=== PATIENT | female | born 1990 | race Hispanic/Latino ===

== ENCOUNTER 2018-05-27 08:46 | Day surgery (SDC) | payer OTHER, SELFPAY ==
[2018-05-27 09:28] VITALS: BP 120/67; TEMP 98.2; BMI 29.2
[2018-05-27 09:57] LABS: Amnisure Test No Membranes Rupture (No Rupture)
[2018-05-27 09:58] LABS: Amnisure Internal Control QC ACCEPTABLE (ACCEPTABLE)
--- NOTE | 2018-05-27 15:59 | HP ---
OB ER ENCOUNTER PRIMARY OB: Jl Flowers MD CHIEF COMPLAINT: Leakage of fluid. HISTORY OF PRESENT ILLNESS: The patient is a 27-year-old, G2, P1 female with an intrauterine at 24 weeks gestation, who is presenting with vaginal loss of fluid after showering this morning around 8 o'clock and reports that she has had a couple other intermittent episodes with discharge of fluid that is clear and milky. The patient denies any recent intercourse for approximately the last two weeks. She also denies any uterine contractions, vaginal bleeding, or change in vaginal odor. She also denies dysuria. The patient does report a history of constipation over the last couple of days. Reports positive movement. Of note, this is a product of IVF, with Dr. Parikh. The patient denies vision changes, back pain, abdominal pain, cramping, nausea, or vomiting. PAST MEDICAL HISTORY: Gestational diabetes. PAST SURGICAL HISTORY: None. ALLERGIES: NO KNOWN DRUG ALLERGIES. SOCIAL HISTORY: Denies drug, alcohol, or tobacco use. MEDICATIONS: Metformin 500 mg at bedtime. OB LABS: Unavailable at the time of dictation. OB HISTORY: The patient has had one child delivered at term and one previous . REVIEW OF SYSTEMS: Per HPI. PHYSICAL EXAMINATION: VITAL SIGNS: Blood pressure 120/67, heart rate of 79, respiratory rate of 18, and temperature 98.2. GENERAL: She appears to be in no acute distress. She is alert, oriented, cooperative, pleasant to interact with. HEAD: Normocephalic and atraumatic. LUNGS: Clear to auscultation bilaterally. HEART: Regular rate and rhythm. ABDOMEN: Gravid, soft, and nontender.. EXTREMITIES: Nontender and nonedematous. : The perineum is fairly dry. Vestibular region has moisture, but no identifiable discharge. On speculum exam, the patient has no evidence of pulling. She does have a very small amount of milky normal appearing discharge at the base of the vaginal canal. No bleeding. Cervix is visibly closed. heart tones Doppler in the 140s. Bedside ultrasound demonstrates a normal CRUZ of 14. LABORATORY DATA: AmniSure test is negative. BP-3 test is negative for evidence of Trichomonas, yeast infection, or bacterial vaginosis. ASSESSMENT AND PLAN: The patient is a 27-year-old G2, P1 female with an intrauterine at 24 weeks, coming in complaining of vaginal leakage of fluid after showering. There is no evidence of infection or rupture of membranes or labor. Fetus has a reassuring heart tones and has normal fluid on bedside ultrasound. The patient will be discharged to home with instructions for precautions for labor or rupture of membranes. She has an appointment and been asked to keep her next scheduled appointment with Dr. Flowers. Job ID: [id number]
== END 2018-05-27 11:50 | disposition home or self-care (01) ==
LOC: L&D/OP 08:46
PROVIDERS: ATTEND Family Medicine
DX: O99.89 Other specified diseases and conditions complicating pregnancy, childbirth and the puerperium (principal); N89.8 Other specified noninflammatory disorders of vagina; O24.419 Gestational diabetes mellitus in pregnancy, unspecified control; Z3A.24 24 weeks gestation of pregnancy; Z79.84 Long term (current) use of oral hypoglycemic drugs
CPT/HCPCS: 76815; 84112; 87480; 87510; 87660; 99284

== ENCOUNTER 2018-07-01 14:43 | Day surgery (SDC) | payer OTHER ==
--- NOTE | 2018-07-01 16:00 | PDOC.LDHP ---
Labor and Delivery H&P Chief complaint: other (epigastric pain) HPI: Patient of Dr Flowers CC: epigastric pain Time: 1600 HPI: (H&P Dictated): 27 yo at 32 weeks here for colicky pain. Some nausea with it...no fever, no VB, no LOF. Good FM. Has GDM on metformin Review of Systems: negative as per HPI Current gestational age (weeks): 32 Due date: 08/26/18 Dating criteria: last menstrual period Grav: 2 Para: 1 Current complications: gestational diabetes (on metformin) Abnormal US findings: No Current medications: pre-tato vitamins, other (methformin) Previous surgical history: none Allergies/Adverse Reactions: Allergies Allergy/AdvReac Type Severity Reaction Status Date / Time No Known Allergies Allergy Verified 05/27/18 09:37 Social history: none - Physical Exam Vital signs reviewed and normal: yes (115/68) General: NAD Heart: RRR Lungs: CTAB Abdomen: gravid Extremeties: no edema FHT: category 1 (for age) Schaller contractions every: none - Assessment 32 weeks epigasric pain, r/o stones - Plan Plan: observation in L&D (We will order RUQ sono, Hpylori, CMP, cbc...do not suspect labor)
--- NOTE | 2018-07-01 16:09 | HP ---
LOCATION: Triage. TIME OF EVALUATION: 1535 hours. CHIEF COMPLAINT: This is a patient of Dr. Flowers. In brief, this is a patient who presents for mid epigastric colicky pain. HISTORY OF PRESENT ILLNESS: This is a 27-year-old, G2, P1 with a history of a prior vaginal delivery in 2008, who has an EDC of August 26, gives her an EGA of 32 weeks. She denies contractions or vaginal bleeding or leakage of fluid. REVIEW OF SYSTEMS: Otherwise negative, unless specified in the HPI. PAST SURGICAL HISTORY: Negative. PAST MEDICAL HISTORY: Includes gestational diabetes, for which she takes metformin in this . ALLERGIES: NONE. PHYSICAL EXAMINATION: VITAL SIGNS: Blood pressure is 115/68. heart tones are in the 150s. Her maternal pulse is 90 and she is afebrile. GENERAL: Clinically, she is in no acute distress. ABDOMEN: Soft and nontender. There is no Guthrie's sign. Abdomen and uterine fundus are without point tenderness. : There is no vaginal bleeding. Cervix is deferred as there is no evidence of contractions on TOCO and she is not here for contractions. Nonstress test reveals a reactive tracing for age. There are no contractions on the tocodynamometer. ASSESSMENT: This is a 27-year-old, G2, P1, at 32 weeks with epigastric colicky pain and some nausea. PLAN: 1. I have ordered a right upper quadrant ultrasound. 2. I have ordered a complete metabolic profile and a CBC. 3. I have ordered an H. pylori (send out lab...I instructed her to follow up results with Dr Flowers) 4. The CMP will check her glucose due to her gestational diabetes history. 5. Information given to the patient and we will see what evaluation occurs. Job ID: [id number] [facility]
[2018-07-01 16:23] LABS: #Lymphocytes 0.9 thou/uL (1.20-3.40); #Monocytes 0.4 thou/uL (0.11-0.59); #Neutrophils 7.4 thou/uL (1.40-6.50); %Basophils 0.2 % (0.0-1.0); %Eosinophils 0.3 % (0.0-10.0); %Lymphocytes 10.1 % (21.0-51.0); %Neutrophils 85.5 % (42.0-75.0); Hemoglobin 11.4 g/dL (12.0-16.0); Mean Corpuscular HGB CONC 34.3 g/dL (32.0-36.0); Mean Corpuscular Hemoglobin 30.1 pg (27.0-31.0); Mean Corpuscular Volume 87.7 fL (78.0-98.0); Mean Platelet Volume 5.9 fL (7.4-10.4); Platelet Count 227 thou/uL (130-400); RBC Distribution Width 11.7 % (11.5-14.5); Red Blood Cell (RBC) Count 3.79 mill/uL (4.20-5.40); White Blood Cell (WBC) Count 8.7 thou/uL (4.8-10.8)
[2018-07-01 16:32] VITALS: BMI 31.8
--- NOTE | 2018-07-01 16:32 | ULT ---
Exam: Right upper quadrant ultrasound: HISTORY: Right upper quadrant pain on and off for approximately 2 weeks. Intrauterine gestation with gestation al age of approximately 32 weeks. COMPARISON: None FINDINGS: Liver: No focal hepatic lesions are seen. Gallbladder: No evidence of gallbladder calculi, gallbladder wall thickening, or pericholecystic flui d. The inside steward/stewardess notes a negative sonographic Guthrie's sign. Common bile duct: Common duct is normal in size measuring 0.4 cm in diameter. Pancreas: Grossly obscured due to shadowing from bowel gas and not well evaluated on this exam. Right kidney: Normal sonographic appearance and [id number] cm in in length. No hydronephrosis is pr esent. IVC: The visualized IVC demonstrates a normal sonographic appearance. IMPRESSION: Right upper quadrant ultrasound is within normal limits; no gallbladder calculi are seen.
[2018-07-01 16:46] LABS: ALT (SGPT) 10 U/L (8-55); AST (SGOT) 13 U/L (5-34); Albumin 3.3 g/dL (3.5-5.0); Alkaline Phosphatase 220 U/L (40-150); Anion Gap 11 mmol/L (10-20); BUN (Urea Nitrogen) 7 mg/dL (7.0-18.7); Bilirubin, Total 0.4 mg/dL (0.2-1.2); Calc. Creatinine Clearance 176 mL/min (70-130); Calcium 8.7 mg/dL (7.8-10.44); Carbon Dioxide 24 mmol/L (22-29); Chloride 104 mmol/L (98-107); Estimated GFR-MDRD Greater than 90; Globulin 3.5 g/dL (2.4-3.5); Glucose 92 mg/dL (70-105); Potassium 3.9 mmol/L (3.5-5.1); Protein, Total 6.8 g/dL (6.0-8.3); Sodium 135 mmol/L (136-145)
--- NOTE | 2018-07-01 16:50 | PDOC.EVN ---
Event Note - Event Note Event Note: RUQ sono wnl CMP and CBC wnl H Pylori to have outpatient follow up
--- NOTE | 2018-07-01 16:51 | PDOC.EVN ---
Event Note - Event Note Event Note: GLUCOSE ok
== END 2018-07-01 17:35 | disposition home or self-care (01) ==
LOC: L&D/OP 14:43
PROVIDERS: ATTEND Family Medicine
DX: O99.89 Other specified diseases and conditions complicating pregnancy, childbirth and the puerperium (principal); R10.13 Epigastric pain; O24.415 Gestational diabetes mellitus in pregnancy, controlled by oral hypoglycemic drugs; Z3A.32 32 weeks gestation of pregnancy; Z79.899 Other long term (current) drug therapy
CPT/HCPCS: 36415; 76705; 80053; 85025; 86677; 99282

== ENCOUNTER 2018-08-13 11:00 | Inpatient (IN) | payer MEDICAID, OTHER, SELFPAY ==
[2018-08-13] MEDS ORDERED: Bupivacaine/Epinephrine 0.25% 30 ML VIAL ONE (11:11)
[2018-08-13] MEDS ORDERED: Carboprost 250 MCG/ML AMP IM PRN (12:23)
[2018-08-13] MEDS ORDERED: Misoprostol 200 MCG TAB PR PRN (12:23)
[2018-08-13] MEDS ORDERED: Butorphanol Tartrate 1 MG/ML VIAL SLOW IVP PRN (12:23)
[2018-08-13] MEDS ORDERED: Ibuprofen 800 MG TAB PO PRN (12:23)
[2018-08-13] MEDS ORDERED: HYDROcodone/Acetaminophen 5/325 mg Tablet PO PRN ×3 (12:23→21:01)
[2018-08-13] MEDS ORDERED: Diphenoxylate HCl/Atropine Tablet PO PRN (12:23)
[2018-08-13] MEDS ORDERED: Lidocaine 1% (PF) 30 ML VIAL SC PRN (12:23)
[2018-08-13] MEDS ORDERED: Methylergonovine 0.2 MG/ML VIAL IM PRN (12:23)
[2018-08-13] MEDS ORDERED: NS / Oxytocin 40 units/1000ml 1,000 ML IV PRN (12:23)
[2018-08-13] MEDS ORDERED: Ondansetron PF 4 MG/2 ML Vial IVP PRN ×3 (12:23→21:01)
[2018-08-13] MEDS ORDERED: Promethazine HCl 25 MG/ML VIAL IM PRN ×3 (12:23→21:01)
[2018-08-13] MEDS ORDERED: NS w/ Oxytocin 10 units 500 ML IV SCH ×2 (12:30)
[2018-08-13] MEDS: Lactated Ringer's 1,000 ML IV SCH (13:00)
[2018-08-13 13:24] LABS: Hemoglobin 13.7 g/dL (12.0-16.0); Mean Corpuscular HGB CONC 35.5 g/dL (32.0-36.0); Mean Corpuscular Volume 87.4 fL (78.0-98.0); Mean Platelet Volume 6.7 fL (7.4-10.4); Platelet Count 242 thou/uL (130-400); Red Blood Cell (RBC) Count 4.41 mill/uL (4.20-5.40); White Blood Cell (WBC) Count 9.9 thou/uL (4.8-10.8)
[2018-08-13 13:32] VITALS: BMI 31.4
[2018-08-13] MEDS ORDERED: Misoprostol 100 MCG TAB ONE (13:49)
[2018-08-13] MEDS ORDERED: Fentanyl 4 mcg/Bup 0.1% Cadd 100 ML ONE (13:49)
[2018-08-13 14:06] LABS: Syphilis Antibody Nonreactive (Nonreactive); Syphilis Antibody Index 0.06 S/CO (<1.00 Non-Reactive)
[2018-08-13 14:07] LABS: HBSAg Index 0.27 S/CO (0-0.99); Hep B Surf Ag Non-Reactive S/CO (NonReactive)
[2018-08-13] MEDS ORDERED: Naloxone HCl 0.4 mg/ml Vial IVP PRN ×2 (14:35)
[2018-08-13] MEDS ORDERED: Acetaminophen 325 MG TAB PO PRN (14:35)
[2018-08-13] MEDS ORDERED: ePHEDrine/0.9% NaCl/PF SYRINGE 50 mg/10 ml SLOW IVP PRN (14:35)
[2018-08-13] MEDS ORDERED: diphenhydrAMINE 50 MG/ML VIAL IVP PRN (14:35)
[2018-08-13] MEDS ORDERED: Lactated Ringer's 500 ML IV PRN (14:35)
[2018-08-13] MEDS ORDERED: Fentanyl 4 mcg/Bupivacaine 0.1% Cassette 100 ML EPIDURAL SCH (14:45)
[2018-08-13] MEDS ORDERED: Communication Order-Pharmacy FS SCH (14:45)
[2018-08-13] MEDS ORDERED: Lanolin Ointment 7 GM TUBE TOP PRN (21:01)
[2018-08-13] MEDS ORDERED: NS / Oxytocin 40 units/1000ml 1,000 ML IV SCH (21:01)
[2018-08-13] MEDS ORDERED: Benzocaine-Menthol 82.5 ML CAN TOP PRN (21:01)
[2018-08-13] MEDS ORDERED: diphenhydrAMINE 25 MG CAP PO PRN (21:01)
[2018-08-13] MEDS ORDERED: Milk Of Magnesia 30 ML UDCUP PO PRN (21:01)
[2018-08-13] MEDS ORDERED: Bisacodyl 10 MG SUPP PR PRN (21:01)
[2018-08-13] MEDS: Docusate Calcium (SURFAK) 240 MG CAP PO SCH (22:17)
[2018-08-13] MEDS: Ibuprofen 800 MG TAB PO SCH (22:17)
[2018-08-14] MEDS: Ibuprofen 800 MG TAB PO SCH ×3 (05:44→21:25)
[2018-08-14 06:16] LABS: Hemoglobin 11.5 g/dL (12.0-16.0); Mean Corpuscular HGB CONC 34.2 g/dL (32.0-36.0); Mean Corpuscular Volume 87.6 fL (78.0-98.0); Mean Platelet Volume 6.6 fL (7.4-10.4); Platelet Count 192 thou/uL (130-400); RBC Distribution Width 13.1 % (11.5-14.5); Red Blood Cell (RBC) Count 3.82 mill/uL (4.20-5.40); White Blood Cell (WBC) Count 14.1 thou/uL (4.8-10.8)
[2018-08-14] MEDS: Docusate Calcium (SURFAK) 240 MG CAP PO SCH ×2 (08:59→21:25)
[2018-08-14] MEDS: Prenatal Vitamin 1 TAB PO SCH (08:59)
[2018-08-14] MEDS: Ferrous Sulfate 325 MG TAB PO SCH ×2 (08:59→17:58)
[2018-08-14] MEDS: Lactated Ringer's 1,000 ML IV SCH (23:31)
[2018-08-15 00:55] VITALS: TEMP 98.1
[2018-08-15] MEDS: Ibuprofen 800 MG TAB PO SCH (06:17)
[2018-08-15] MEDS: Ferrous Sulfate 325 MG TAB PO SCH (08:47)
[2018-08-15] MEDS: Prenatal Vitamin 1 TAB PO SCH (09:01)
[2018-08-15] MEDS: Docusate Calcium (SURFAK) 240 MG CAP PO SCH (09:01)
[2018-08-15 09:40] VITALS: BP 110/58
== END 2018-08-15 15:35 | disposition home or self-care (01) | DRG 807 ==
LOC: L&D 12:14 → 3SW 20:50
PROVIDERS: ADMIT Family Medicine; ATTEND Family Medicine
PROC: 10E0XZZ Delivery of Products of Conception, External Approach (ICD-10-PCS; principal; 2018-08-13)
PROC: 0HQ9XZZ Repair Perineum Skin, External Approach (ICD-10-PCS; 2018-08-13)
DX: O71.82 Other specified trauma to perineum and vulva (principal); Z37.0 Single live birth; Z3A.39 39 weeks gestation of pregnancy
CPT/HCPCS: 36415; 51702; 85027; 86780; 86850; 86900; 86901; 87340; J2590

== ENCOUNTER 2019-12-10 13:56 | Outpatient (CLI) | payer OTHER ==
--- NOTE | 2019-12-10 15:22 | ULT ---
ULTRASOUND OB COMPLETE STANDARD: 12/10/19 HISTORY: Anatomy evaluation and cervical evaluation. COMPARISON: None. FINDINGS: Real time bliss scale, color, spectral analysis of the gravid uterus was performed transabdominal appr [facility]. Single viable intrauterine with average ultrasound age of 17 week, 4 day. Estimated d ate of delivery 05/15/2020. The cervix is closed and measures 4.2 cm in length. weight is 7 oz. 1 1th percentile. BIOMETRY: Biparietal diameter: 3.91 cm, 19 week, 0 day. Head circumference: 14.35 cm, 17 week, 5 day. Abdominal circumference: 11.66 cm, 17 week, 3 day. Femur length: 2.22 cm, 17 week, 1 day. Heart rate documented at 142 beats per minute. The placenta is anterior. Adequate amniotic fluid with amniotic fluid index of 9.9 cm. Small placental jones measures up to 1.2 cm in size. ANATOMY: The head, cerebellum, cisterna magna, lateral ventricles, four chamber heart, stomach, kidneys, cord insertion, bladder, spine, lips/nose, upper extremities, lower extremities, three vessel cord are all normal. IMPRESSION: Normal single viable intrauterine . POS: [facility]
== END 2019-12-10 13:57 | disposition home or self-care (01) ==
LOC: BICULT 13:56
PROVIDERS: ATTEND Family Medicine
DX: Z34.82 Encounter for supervision of other normal pregnancy, second trimester (principal)
CPT/HCPCS: 76805